=== PATIENT | female | born 1975 | race Caucasian/White ===

== ENCOUNTER → 2023-12-19 08:14 | Outpatient (BNVA) | payer BC, MEDICAID, SELFPAY | PROVIDERS: PCP Nurse Practitioner Family; Visit Provider Internal Medicine | DX: E10.9 Type 1 diabetes mellitus without complications (principal); E78.00 Pure hypercholesterolemia, unspecified | CPT/HCPCS: 80053; 80061; 82043; 83036 ==

== ENCOUNTER 2024-05-01 06:01 | Day surgery (SDC) | payer BC, SELFPAY ==
[2024-05-01 06:16] VITALS: BP 98/62; PULSE 71; RESP 18; TEMP 36.6; O2SAT 100; BMI 19.3
[2024-05-01] MEDS: sodium chloride 0.9% 1,000 ML 30 ML IV (06:24)
[2024-05-01 06:30] LABS: Glucose Point of Care 194 mg/dL (70-110)
--- NOTE | 2024-05-01 06:32 | P.ANESASSM_ITS ---
Pre-Anesthetic Assessment Height/Weight: Height 1.68 m Weight 54.431 kg Temp Pulse Resp BP Pulse Ox O2 Del Method 98 F 71 18 98/62 100 Room Air 05/01/24 06:16 05/01/24 06:16 05/01/24 06:16 05/01/24 06:16 05/01/24 06:16 05/01/24 06:16 Operation Date: 05/01/24 07:00 Proposed Procedures p Colonoscopy- 33036,G0121,Z12.11(Not Applicable) - Wisam Desai MD Familial anesthetic complications: None Was Beta David taken within 24 hours: N/A Was Clonidine taken within 24 hours: N/A Last intake: Intake Last Liquid Date 04/30/24 Last Liquid Time 20:00 Last Solid Date 04/29/24 Last Solid Time 20:00 Social No alcohol and No tobacco Exam alert, oriented x 3, clear to auscultation bilaterally and regular rate & rhythm Airway Submandibular: within normal limits Cervical ROM: within normal limits Mallampati: Class II Dentition: full Comments: Comments: Broken tooth back upper right History/ROS No significant history except as noted and No significant complaints Pulmonary None reported CV/HEM None reported None reported Hepatic None reported GI None reported Metabolic Diabetes Mellitus and Hyperlipidemia [facility] [place] None reported Neuropsych Seizure (d/t hypoglycemia) Anesthetic Plan ASA status: 1 Anesthesia: Anesthesia Evaluation, General and MAC Risk of > 500 ml blood loss (7ml/kg in children): No Medications/Allergies Home Medications Medication Instructions Recorded Confirmed Last Taken Type blood-glucose meter,continuous 10/26/22 04/06/24 Unknown History (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-glucose 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 (Dexcom G6 10/26/22 04/06/24 Unknown History Sensor device) blood-glucose transmitter (Dexcom 10/26/22 04/06/24 Unknown History G6 Transmitter device) insulin glargine 100 unit/mL (3 8 unit SUBCUT DAILY 10/26/22 04/26/24 04/30/24 History mL) subcutaneous pen (Lantus Solostar U-100 Insulin) insulin lispro 100 unit/mL See Rx Instructions SUBCUT TID #15 10/26/22 04/26/24 04/30/24 Rx subcutaneous half-unit pen mL (Humalog Torin KwikPen (U-100)) blood-glucose meter #1 ea 01/02/24 04/06/24 Unknown Rx Allergies Allergy/AdvReac Type Severity Reaction Status Date / Time amoxicillin Allergy Intermediate ALGY-Swell Verified 04/26/24 11:18 Lip/Tongue/Throat sulfa Allergy Intermediate ALGY-Swell Uncoded 04/26/24 11:18 Lip/Tongue/Throat Current Medications Generic Name Dose Route Start Last Admin Trade Name Freq PRN Reason Stop Dose Admin Sodium Chloride 1,000 mls @ 30 mls/hr 05/01/24 06:15 05/01/24 06:24 Sodium Chloride 0.9% IV 05/02/24 06:14 30 mls/hr .Q24H SEFERINO Administration PFSH Anesthesia Medical History High cholesterol Type 1 diabetes Family History Other Diabetes Hypertension Thyroid disease Social History Smoking and tobacco/nicotine status: never used tobacco/nicotine Female Reproductive History Date of last menstrual period: 04/25/24 Data Anesthesia Cardiac Studies: No Data to Display
--- NOTE | 2024-05-01 07:00 | W.PM.OPSUD ---
Surgery/Procedure H&P Update DATE OF PROCEDURE: May 01, 2024 DATE H&P PERFORMED: 04/06/24 H&P UPDATE INFORMATION: I have reviewed H&P completed within last 30 days, I have examined patient prior to procedure and No changes to prior documentation PLANNED PROCEDURE: Operation Date: 05/01/24 07:00 Proposed Procedures p Colonoscopy- 65040,G0121,Z12.11(Not Applicable) - Wisam Desai MD
[2024-05-01 07:29] LABS: OR HCG Qualitative Urine Negative (Negative)
[2024-05-01 07:30] VITALS: BP 102/71; PULSE 74; RESP 16; TEMP 36.3; O2SAT 100
[2024-05-01 07:41] VITALS: BP 100/68; PULSE 68; RESP 16; TEMP 36.2; O2SAT 100
--- NOTE | 2024-05-01 08:00 | ANE.PACU2 ---
Inpatient post-anesthesia follow up: Airway intact: Yes Vital signs: Temperature 97.2 F Pulse Rate 68 Respiratory Rate 16 Blood Pressure 100/68 Pulse Oximetry 100 Oxygen Delivery Me thod Room Air Oxygen Flow Rate Fraction of Inspir ed Oxygen Hydration adequate: Yes Nausea and vomiting: Yes Pain level: 1 Mental status: Baseline
== END 2024-05-01 08:04 | disposition home or self-care (01) ==
PROVIDERS: Anesthesiology; PCP Nurse Practitioner Family; Visit Provider Student in an Organized Health Care Education/Training Program
PROC: 0DJD8ZZ Inspection of Lower Intestinal Tract, Via Natural or Artificial Opening Endoscopic (ICD-10-PCS; CPT 45378; principal; 2024-05-01 07:00)
DX: Z12.11 Encounter for screening for malignant neoplasm of colon (principal); K64.4 Residual hemorrhoidal skin tags; E78.5 Hyperlipidemia, unspecified; E10.9 Type 1 diabetes mellitus without complications
CPT/HCPCS: 36416; 45378; 45380; 81025; 82962; J2704; J7030